=== PATIENT | male | born 2000 | race African-American/Black ===

== ENCOUNTER 2023-08-04 17:24 | Emergency (ER) | payer MEDICAID, OTHER ==
[~2023-08-04] VITALS: Ht 188 cm; Wt 78.2 kg
[2023-08-04] MEDS ORDERED: IBUPROFEN 800 MG TAB PO ONE (19:30)
[2023-08-04] MEDS ORDERED: ONDANSETRON ODT 4 MG TAB PO ONE (20:30)
[2023-08-04] MEDS ORDERED: HYDROcodone-ACET 5/325MG TAB PO ONE (20:30)
[2023-08-04] MEDS ORDERED: CYCL-837 PO (20:32)
[2023-08-04] MEDS ORDERED: IBUP-1455 PO (20:32)
[2023-08-04 21:01] VITALS: BP 118/70; PULSE 86; RESP 18; TEMP 98; O2SAT 98
== END 2023-08-04 22:13 ==
LOC: ER 17:24
DX: S16.1XXA Strain of muscle, fascia and tendon at neck level, initial encounter (principal); X58.XXXA Exposure to other specified factors, initial encounter; Y93.89 Activity, other specified; Y92.89 Other specified places as the place of occurrence of the external cause; Y99.8 Other external cause status
CPT/HCPCS: 72040; 99284; Q0162

== ENCOUNTER 2023-10-06 02:45 | Emergency (ER) | payer OTHER ==
[~2023-10-06] VITALS: Ht 188 cm; Wt 77.0 kg
[~2023-10-06 02:45] MED LIST: CYCL-837 PO; IBUP-1455 PO
[2023-10-06] MEDS ORDERED: IBUP1TAB5 PO (03:57)
[2023-10-06] MEDS ORDERED: IBUPROFEN 600 MG TAB PO ONE (04:00)
[2023-10-06 05:43] VITALS: BP 125/79; PULSE 80; RESP 16; TEMP 98.2; O2SAT 97
== END 2023-10-06 05:36 | disposition home or self-care (01) ==
LOC: ER 02:45
DX: S52.611A Displaced fracture of right ulna styloid process, initial encounter for closed fracture (principal); S62.309A Unspecified fracture of unspecified metacarpal bone, initial encounter for closed fracture; Z79.1 Long term (current) use of non-steroidal anti-inflammatories (NSAID); Z79.899 Other long term (current) drug therapy; W01.0XXA Fall on same level from slipping, tripping and stumbling without subsequent striking against object, initial encounter; Y93.89 Activity, other specified; Y92.89 Other specified places as the place of occurrence of the external cause; Y99.8 Other external cause status
CPT/HCPCS: 29125; 73130